=== PATIENT | male | born 1955 | race Caucasian/White ===

== ENCOUNTER 2021-05-21 20:37 | Emergency (ER) | payer MEDICAID ==
[~2021-05-21] VITALS: Ht 177.8 cm; Wt 96.7 kg
[2021-05-21 20:44] VITALS: BP 209/115
[2021-05-21] MEDS ORDERED: IBUPROFEN 800 MG TABLET ONE (21:16)
[2021-05-21] MEDS ORDERED: PENICILLIN VK 500MG TABLET ONE (21:17)
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
--- NOTE | 2021-05-21 21:26 | NUR ---
Patient given discharge instructions and they have confirmed that they understand the instructions. Patient ambulatory with steady gait. NAD, all questions answered appropriately, denies additional needs at this time. No personal belongings left in room after discharge.
[2021-05-21] MEDS ORDERED: IBUPROFEN 800 MG TABLET PO ONE (21:30)
[2021-05-21] MEDS ORDERED: PENICILLIN VK 500MG TABLET PO ONE (21:30)
== END 2021-05-21 21:28 | disposition home or self-care (01) ==
LOC: ED 20:57
DX: K02.9 Dental caries, unspecified (principal); R51.9 Headache, unspecified; R00.0 Tachycardia, unspecified
CPT/HCPCS: 93005; 99283